=== PATIENT | male | born 1950 | race Caucasian/White ===

== ENCOUNTER → 2021-01-26 | Day surgery (SDC) | payer MEDICARE ==
[~2021-01-26] VITALS: Ht 177.8 cm; Wt 76.7 kg
[~2021-01-26] MED LIST: ACIPHEX20 MG PO; ASPIR 8181 MG PO; CERTAGEN1 EACH PO; CHLORTHALIDONE25 MG PO; K-DUR20 MEQ PO; PRINIVIL20 MG PO; TUMERIC PO; UROCIT-K10 MEQ PO; VITAMIN D31000 UNI1 PO
[2021-01-26 08:21] LABS: HCT 45.9 % (42.0-52.0); HGB 15.7 g/dl (13.2-18.0); MCH 32.9 pg (25.0-31.0); MCHC 34.2 g/dL (32.0-36.0); MCV 96.2 fL (78.0-100.0); MPV 10.8 fL (6.0-9.5); RBC 4.77 M/uL (4.70-6.00); RDW 12.5 % (11.5-14.0); WBC 4.9 K/uL (4.0-10.5)
[2021-01-26 08:59] LABS: ALBUMIN 4.1 g/dL (3.4-5.0); BILIRUBIN - TOTAL 1.8 mg/dL (0.2-1.0); BUN/CREAT RATIO (CALC) 16.2 RATIO; CREATININE 0.99 mg/dL (0.67-1.17); GLOBULIN (CALCULATION) 3.5 g/dL; POTASSIUM 3.2 mmol/L (3.5-5.1); TOTAL PROTEIN 7.6 g/dL (6.4-8.2)
== END | disposition home or self-care (01) ==
LOC: FAS 07:16
PROVIDERS: Surgery
DX: R19.5 Other fecal abnormalities (principal); K76.0 Fatty (change of) liver, not elsewhere classified; Z88.8 Allergy status to other drugs, medicaments and biological substances; Z79.82 Long term (current) use of aspirin; Z86.010 Personal history of colon polyps
CPT/HCPCS: 36415; 80053; J2704; J7120